=== PATIENT | male | born 1995 | race African-American/Black ===

== ENCOUNTER 2021-04-05 15:39 | Emergency (ER) | payer OTHER ==
[~2021-04-05 15:39] MED LIST: TRIAMCINOLONE A80 G1 TOP
[2021-04-05 16:59] LABS: INFLUENZA A NAA NEGATIVE (NEGATIVE)
[2021-04-05 17:03] LABS: CORONAVIRUS 2019 SARS-COV-2 POSITIVE (NEGATIVE)
== END 2021-04-05 17:56 | disposition home or self-care (01) ==
LOC: FER 15:39
PROVIDERS: Emergency Medicine
DX: R07.89 Other chest pain (principal); U07.1 COVID-19; F17.290 Nicotine dependence, other tobacco product, uncomplicated
CPT/HCPCS: 93005; U0002